=== PATIENT | male | born 1965 | race Caucasian/White ===

== ENCOUNTER 2020-05-30 11:22 | Inpatient (IN) ==
[2020-05-30 11:34] VITALS: BMI 30.3
--- NOTE | 2020-05-30 11:58 | DR.SOBA ---
HPI Time Seen Time Seen by Provider: 05/30/20 11:51 Primary Care Physician Primary Care Physician: BERNIE HPI Comment HPI Comment: PATIENT IS 54 YR OLD MALE, COVID 19 TEST POSITIVE OVER 0NE WEEK AGO PRESENTS TO ER WITH OXYGEN DESATURATION AND INCREASING SON TIMES 3 DAYS. ALSO HAVING HEADACHE. PATIENT IS WEAK AND LOW OXYGEN WORSE WITH EXERTION. CHEST IS TIGHT. HEADACHE 7/10, NON RADIATING. COUGH IS NON PRODUCTIVE. Complaints Chief Complaint Doctors Comments: INCREASING SOB, LOW OXYGEN SATURATION AND HEAD ACHE TIMES 3 DAYS. Chief Complaint:: PT C/O INCREASING SHORTNESS OF BREATH AND LOW OXYGEN SAT AND HEADACHE. PT STATES PT IS + COVID SUNDAY WAS A WEEK AGO. PT STATES HIS OXYGEN LEVEL HAS BEEN LOW 83% ON ROOM AIR. UPON TRIAGE PT IS NOTED TO HAVE LABORED BREATHING AND SPO2 READING AT 87% ON R/A. COVID-19 Coronavirus risk:travel/contact w/high risk person: Yes Has patient experienced Coronavirus symptoms: Yes Coronavirus symptoms experienced: Coughing and Shortness of Breath Reviewed Nurses Notes Reviewed: Yes Source History Provided: Patient Mode of Arrival Mode of Arrival: Ambulatory Timing Onset of Chief Complaint: 05/27/20 Duration Duration: Days Context Onset:: At Rest PE Risk Factors:: None History of:: None Currently on:: Neither Prehospital Care:: None Modifying Factors Worsens:: Nothing and Exertion Improves:: Rest Associated Signs and Symptoms Associated Signs and Symptoms: Cough, Nasal Congestion and Chest Pain If Chest Pain Quality: Sharp Location: Substernal If Cough Cough: Nonproductive PMH PMH Past Medical History: No Past Surgical History: No Family History History of Family Medical Conditions: No Social History Does any household member use tobacco: No Alcohol Use: None Do you use any recreational Drugs:: No Lives With: Family Lives Where: Home Travel Risk Coronavirus risk:travel/contact w/high risk person: Yes Has patient experienced Coronavirus symptoms: Yes Coronavirus symptoms experienced: Coughing and Shortness of Breath Infectious screening In the last 2 months have you had wt loss of >10#?: NO Have you had fever, night sweats or hemotysis?: No Have you traveled outside the country in the last 6 months?: No Isolation: Droplet ROS Review of Systems Constitutional: See HPI, Fever, Weakness and Fatigue Eyes: No Symptoms Reported and See HPI ENTM: No Symptoms Reported, See HPI, Nose Discharge and Nose Congestion Respiratoy: No Symptoms Reported, See HPI, Non-Productive Cough and Short of Breath Cardiovascular: No Symptoms Reported, See HPI and Chest Pain; negative Palpi tations Gastrointestinal/Abdominal: No Symptoms Reported and See HPI; negative Abdominal Pain, Diarrhea, Nausea and Vomiting Genitourinary: No Symptoms Reported and See HPI; negative Dysuria, Frequency and Hematuria Neurological: See HPI, Headache and Weakness Musculoskeletal: No Symptoms Reported and See HPI; negative Back Pain Integumentary: No Symptoms Reported and See HPI; negative Change in Color, Rash and Juandice Hematologic/Lymphatic: No Symptoms Reported and See HPI Endocrine: No Symptoms Reported and See HPI; negative Increased Thirst and Increased Urine Psychiatric: No Symptoms Reported and See HPI All Other Systems: Reviewed and Negative PE Vital Signs Vitals: Temperature 97.8 F Pulse Rate 74 Respiratory Rate 26 Blood Pressure 121/77 O2 Sat by Pulse Oximetry 92 General Limitations: No Limitations General Appearance: Alert and In No Apparent Distress Head Head Exam: Normal Inspection and Atraumatic Eyes Eye exam: Normal Appearance and PERRL; negative Scleral Icterus and Conjunctival Injection ENT ENT Exam: Normal Exam, Normal Oropharynx, Normal External Ear Exam and TM's Normal Bilaterally Neck Neck Exam: Normal Inspection and Trachea Midline; negative Tenderness and Lymphadenopathy Chest Chest Inspection: Normal Inspection and Symmetric Chest Wall Rise; negative Tenderness Respiratory Respiratory Exam: Normal Lung Sounds Bilat; negative Accessory Muscle Use, Chest Wall Tenderness and Respiratory Distress Respiratory Exam: Bilateral: Rhonchi and Lower: Rhonchi Cardiovascular Cardiovascular Exam: Regular Rate, Normal Rhythm and Normal Heart Sounds; negative Systolic Murmur and Diastolic Murmur Abdominal Exam Abdominal Exam: Normal Inspection, Normal Bowel Sounds and Soft; negative Tenderness Extremities Extremities Exam: Normal Inspection Back Back Exam: Normal Inspection; negative (R) CVA Tenderness and (L) CVA Tenderness Neurologic Neurological Exam: Alert, Oriented X3 and CN II-XII Intact; negative Motor Sensory Deficit Psychiatric Psychiatric Exam: Normal Affect and Normal Mood Skin Skin Exam: Warm, Dry, Intact and Normal Color MDM Differential Diagnosis Differential Diagnosis: Bronchitis, CHF, Hyponatremia, Mycardial Infarction, Pneumonia, Pneumothorax, Pulmonary embolism, Respiratory Insufficiency, Sinusitis and URI COURSE Treatment Treatment: SEE ORDERS. Education/Counseling Education/Counseling: Patient Educated On: Diagnosis ROR Labs Reviewed Laboratory Results Reviewed?: Yes Result Diagrams: 06/06/20 05:20 06/06/20 05:20 Laboratory: 05/30/20 12:08 Blood Blood Culture - Final 05/30/20 12:06 Blood Blood Culture - Final WBC 15.8 X10^3/uL (3.6-10.0) H 05/30/20 12:06 RBC 5.07 X10^6/uL (4.7-6.0) 05/30/20 12:06 Hgb 15.0 g/dL (13.5-18.0) 05/30/20 12:06 Hct 43.4 % (42.0-54.0) 05/30/20 12:06 MCV 85.5 fL (80.0-100.0) 05/30/20 12:06 MCH 29.5 pg (27.0-34.0) 05/30/20 12:06 MCHC 34.5 g/dL (33.0-35.0) 05/30/20 12:06 RDW 12.7 % (11.6-16.5) 05/30/20 12:06 Plt Count 274 X10^3/uL (150.0-450.0) 05/30/20 12:06 MPV 7.0 fL (7.4-11.0) L 05/30/20 12:06 Neut % (Auto) 82.3 % (42.0-75.0) H 05/30/20 12:06 Lymph % (Auto) 10.6 % (21.0-51.0) L 05/30/20 12:06 [place] % (Auto) 6.5 % (0.0-13.0) 05/30/20 12:06 Eos % (Auto) 0.2 % (0.9-2.9) L 05/30/20 12:06 Baso % (Auto) 0.4 % (0.2-1.0) 05/30/20 12:06 Neut # (Auto) 13.0 x10^3/uL (2.2-4.8) H 05/30/20 12:06 Lymph # (Auto) 1.7 X10^3/uL (1.3-2.9) 05/30/20 12:06 [place] # (Auto) 1.0 x10^3/uL (0.3-0.8) H 05/30/20 12:06 Eos # (Auto) 0.0 x10^3/uL (0.0-0.2) 05/30/20 12:06 Baso # (Auto) 0.1 X10^3/uL (0.0-0.1) 05/30/20 12:06 Absolute Nucleated RBC 0.1 /100WBC 05/30/20 12:06 Sample Site Rr 05/30/20 12:25 ABG pH 7.480 (7.35-7.45) H 05/30/20 12:25 ABG pCO2 27.0 mmHg (35.0-45.0) L 05/30/20 12:25 ABG pO2 68.0 mmHg (80.0-100.0) L 05/30/20 12:25 ABG HCO3 20.1 mmol/L (22-26) L 05/30/20 12:25 ABG O2 Saturation 95.0 % (90-100) 05/30/20 12:25 ABG Base Excess -2.2 mmol/L (-2.0-2.0) L 05/30/20 12:25 Glenn Test Pos 05/30/20 12:25 A-a Gradient 48.0 mmHg 05/30/20 12:25 FiO2 21.0 05/30/20 12:25 Blood Gas Comments Sonia well 05/30/20 12:25 Sodium 134 mmol/L (136-145) L 05/30/20 12:06 Corrected Sodium 136 mmol/L (136-145) 05/30/20 12:06 Potassium 3.7 mmol/L (3.5-5.1) 05/30/20 12:06 Chloride 100 mmol/L (98-107) 05/30/20 12:06 Carbon Dioxide 23.0 mmol/L (21-32) 05/30/20 12:06 BUN 18 mg/dL (7-18) 05/30/20 12:06 Creatinine 1.12 mg/dL (0.70-1.30) 05/30/20 12:06 Est GFR (MDRD) Af Amer > 60 (>60) 05/30/20 12:06 Est GFR (MDRD) Non-Af > 60 (>60) 05/30/20 12:06 Glucose 187 mg/dL (65-99) H 05/30/20 12:06 Lactic Acid 1.3 mmol/L (0.4-2.0) 05/30/20 12:06 Calcium 8.5 mg/dL (8.5-10.1) 05/30/20 12:06 Corrected Calcium 9.5 mg/dL (8.5-10.1) 05/30/20 12:06 Ferritin 1499 ng/mL (26-388) H 05/30/20 12:06 Total Bilirubin 0.80 mg/dL (0.2-1.0) 05/30/20 12:06 AST 33 Units/L (15-37) 05/30/20 12:06 ALT 63 Units/L (12-78) 05/30/20 12:06 Alkaline Phosphatase 58 Units/L (46-116) 05/30/20 12:06 Lactate Dehydrogenase 533 Units/L (85-227) H 05/30/20 12:06 C-Reactive Protein 173.60 mg/L (0-3.0) H 05/30/20 12:06 Total Protein 7.1 g/dL (6.4-8.2) 05/30/20 12:06 Albumin 2.7 g/dL (3.4-5.0) L 05/30/20 12:06 Globulin 4.4 g/dL (2.5-4.5) 05/30/20 12:06 Albumin/Globulin Ratio 0.6 Ratio (1.1-2.1) L 05/30/20 12:06 XRAY XRAY Interpreted by: Radiologist (REPORT NOTED AND DISCUSSED WITH PATIENT.) and Self EKG Rate: 77 [place]: Normal Rhythm: NSR Block: None Hypertrophy: LAE ST: Normal Opioid Opioid Risk Tool Age ([place] box if 16-45): No History of Preadolescent Sexual Abuse: No Total: 0 Total Score Risk Category: Low Risk Copyright: [facility] predicting aberrant behaviors Diagnosis Discharge Problem: MCCORMICK (dyspnea on exertion) Pneumonia Qualifiers: Pneumonia type: due to unspecified organism Laterality: bilateral Lung location: lower lobe of lung Qualified Code(s): J18.9 - Pneumonia, unspecified organism Instructions Forms: Precautions for COVID19 Patient Portal Social Distancing
[2020-05-30 12:22] LABS: BASOPHILS # (AUTO) 0.1 X10^3/uL (0.0-0.1); BASOPHILS % (AUTO) 0.4 % (0.2-1.0); EOSINOPHILS % (AUTO) 0.2 % (0.9-2.9); HEMATOCRIT 43.4 % (42.0-54.0); LYMPHOCYTES # (AUTO) 1.7 X10^3/uL (1.3-2.9); LYMPHOCYTES % (AUTO) 10.6 % (21.0-51.0); MEAN CORPUSCULAR HEMOGLOBIN 29.5 pg (27.0-34.0); MEAN CORPUSCULAR HGB CONC 34.5 g/dL (33.0-35.0); MEAN CORPUSCULAR VOLUME 85.5 fL (80.0-100.0); MONOCYTES % (AUTO) 6.5 % (0.0-13.0); NEUTROPHILS % (AUTO) 82.3 % (42.0-75.0); PLATELET COUNT 274 X10^3/uL (150.0-450.0); RED BLOOD COUNT 5.07 X10^6/uL (4.7-6.0); RED CELL DISTRIBUTION WIDTH 12.7 % (11.6-16.5); WHITE BLOOD COUNT 15.8 X10^3/uL (3.6-10.0)
[2020-05-30 12:30] LABS: ABG ALLEN TEST POS; ABG BASE EXCESS -2.2 mmol/L (-2.0-2.0); ABG HCO3 20.1 mmol/L (22-26)
[2020-05-30 12:32] LABS: ALANINE AMINOTRANSFERASE 63 Units/L (12-78); ALBUMIN 2.7 g/dL (3.4-5.0); ALKALINE PHOSPHATASE 58 Units/L (46-116); ASPARTATE AMINO TRANSFERASE 33 Units/L (15-37); BLOOD UREA NITROGEN 18 mg/dL (7-18); CALCIUM 8.5 mg/dL (8.5-10.1); CHLORIDE 100 mmol/L (98-107); COR CA(FOR HYPOALB) 9.5 mg/dL (8.5-10.1); COR NA(FOR HYPERGLY) 136 mmol/L (136-145); CREATININE 1.12 mg/dL (0.70-1.30); LACTATE DEHYDROGENASE 533 Units/L (85-227); SODIUM 134 mmol/L (136-145); TOTAL PROTEIN 7.1 g/dL (6.4-8.2); eGFR NON BLACK RACES > 60 (>60)
--- NOTE | 2020-05-30 12:33 | RAD ---
HISTORY:Increasing shortness of breath, low oxygen saturation, COVID-19 positiveStudy:Single-view chestComparison:NoneFindings:Bilateral multifocal lung infiltrates are present compatible with pneumonia and given history of COVID-19. No effusion or pneumothorax. Heart size is normal.IMPRESSION:1. Bilateral multifocal lung infiltrates compatible with pneumonia and the provided history of COVID-19.Electronically signed by: LUZ MARIA BOGGS (May 30, 2020 12:32:01)
[2020-05-30 12:52] LABS: LACTIC ACID 1.3 mmol/L (0.4-2.0)
[2020-05-30] MEDS ORDERED: ZOSYN VIAL 3.375 GRAMS 3.375 G in NS 100 ML IV + SPIKE MINIBAG* 100 ML IV ONE (14:02)
[2020-05-30] MEDS ORDERED: NS 100 ML IV + SPIKE MINIBAG* 100 ML IV ONE ×2 (14:50→19:40)
[2020-05-30] MEDS ORDERED: ZOSYN VIAL 3.375 GRAMS IV ONE ×2 (14:50→19:38)
[2020-05-30] MEDS: DUONEB 0.5 MG/3 MG (3 mL) NEB SCH (17:55)
[2020-05-30] MEDS ORDERED: NS 1/2 1000 ML IV 1,000 ML IV ONE (18:33)
[2020-05-30 18:35] LABS: BILIRUBIN,URINE NEGATIVE (NEGATIVE); BLOOD/HEMOGLOBIN,URINE NEGATIVE (NEGATIVE); GLUCOSE, URINE 2+ (NEGATIVE); KETONES,URINE NEGATIVE (NEGATIVE); LEUKOCYTE ESTERASE ,URINE NEGATIVE (NEGATIVE); NITRITES,URINE NEGATIVE (NEGATIVE); PROTEIN,URINE 2+ (NEGATIVE); UROBILINOGEN,URINE NORMAL (NORMAL)
[2020-05-30] MEDS: NS 1/2 1000 ML IV 1,000 ML IV SCH ×2 (18:35→18:36)
[2020-05-30] MEDS: ROBITUSSIN DM PO SCH ×2 (18:37→21:30)
[2020-05-30 18:48] LABS: APPEARANCE,URINE CLEAR (CLEAR); COLOR,URINE AMBER (YELLOW)
[2020-05-30 18:49] LABS: BACTERIA,URINE TRACE /HPF (NEGATIVE); RBC,URINE NONE SEEN /HPF (0-3); SQUAMOUS EPITHELIAL CELL,UR RARE /HPF (NEGATIVE)
[2020-05-30 18:50] LABS: AMORPHOUS SEDIMENT,UR 1+ /HPF (NEGATIVE); MUCUS,URINE NUMEROUS /HPF (NEGATIVE)
[2020-05-30] MEDS: LEVAQUIN PREMIX IV 750 MG 750 MG/150 ML BAG IV SCH (18:53)
[2020-05-30] MEDS ORDERED: SOLU-Medrol 125 MG VIAL ONE (19:38)
[2020-05-30] MEDS: SOLU-Medrol 125 MG VIAL IVP SCH (21:30)
[2020-05-30] MEDS: ZOSYN VIAL 3.375 GRAMS 3.375 G in NS 100 ML IV + SPIKE MINIBAG* 100 ML IV SCH (22:02)
[2020-05-31] MEDS: DUONEB 0.5 MG/3 MG (3 mL) NEB SCH ×4 (00:10→17:10)
[2020-05-31 05:18] LABS: BASOPHILS % (AUTO) 0.1 % (0.2-1.0); HEMOGLOBIN 13.8 g/dL (13.5-18.0); LYMPHOCYTES # (AUTO) 0.7 X10^3/uL (1.3-2.9); LYMPHOCYTES % (AUTO) 5.5 % (21.0-51.0); MEAN CORPUSCULAR HEMOGLOBIN 29.5 pg (27.0-34.0); MEAN CORPUSCULAR HGB CONC 33.7 g/dL (33.0-35.0); MEAN CORPUSCULAR VOLUME 87.4 fL (80.0-100.0); MEAN PLATELET VOLUME 7.5 fL (7.4-11.0); MONOCYTES # (AUTO) 0.3 x10^3/uL (0.3-0.8); MONOCYTES % (AUTO) 2.4 % (0.0-13.0); NEUTROPHILS # (AUTO) 11.3 x10^3/uL (2.2-4.8); PLATELET COUNT 266 X10^3/uL (150.0-450.0); RED BLOOD COUNT 4.69 X10^6/uL (4.7-6.0); RED CELL DISTRIBUTION WIDTH 12.5 % (11.6-16.5); WHITE BLOOD COUNT 12.3 X10^3/uL (3.6-10.0)
[2020-05-31] MEDS: ZOSYN VIAL 3.375 GRAMS 3.375 G in NS 100 ML IV + SPIKE MINIBAG* 100 ML IV SCH ×3 (05:25→21:05)
[2020-05-31 05:31] LABS: ALANINE AMINOTRANSFERASE 71 Units/L (12-78); ALBUMIN 2.3 g/dL (3.4-5.0); ALKALINE PHOSPHATASE 58 Units/L (46-116); ASPARTATE AMINO TRANSFERASE 43 Units/L (15-37); BLOOD UREA NITROGEN 16 mg/dL (7-18); CARBON DIOXIDE 20.3 mmol/L (21-32); CHLORIDE 100 mmol/L (98-107); COR CA(FOR HYPOALB) 9.4 mg/dL (8.5-10.1); COR NA(FOR HYPERGLY) 137 mmol/L (136-145); CREATININE 0.93 mg/dL (0.70-1.30); SODIUM 132 mmol/L (136-145); TOTAL PROTEIN 6.6 g/dL (6.4-8.2); eGFR NON BLACK RACES > 60 (>60)
[2020-05-31 05:49] LABS: PLATELET MORPHOLOGY COMMENT NORMAL (NORMAL)
[2020-05-31] MEDS: VSL#3 PO SCH (09:45)
[2020-05-31] MEDS: ROBITUSSIN DM PO SCH ×4 (09:45→21:05)
[2020-05-31] MEDS: LEVAQUIN PREMIX IV 750 MG 750 MG/150 ML BAG IV SCH (09:45)
[2020-05-31] MEDS: SOLU-Medrol 125 MG VIAL IVP SCH (09:45)
[2020-05-31] MEDS ORDERED: NS 1/2 1000 ML IV 1,000 ML IV ONE (09:46)
[2020-05-31] MEDS ORDERED: REMDESIVIR (INVESTIGATIONAL DRUG GS-5734) 200 MG in NS 250 ML IV 250 ML IV SCH (14:58)
[2020-05-31] MEDS: LOVENOX INJ 40 MG SYR SC SCH (15:00)
--- NOTE | 2020-05-31 19:08 | DR.H&P ---
H&P - History & Physical for Day of: H&P Date: 05/30/20 - Chief Complaint Chief Complaint: CCC, SOB, COVID 19 - History of Present Illness History of Present Illness: PT C/O INCREASING SHORTNESS OF BREATH AND LOW OXYGEN SAT AND HEADACHE. PT STATES PT IS + COVID CORI WAS A WEEK AGO. PT STATES HIS OXYGEN LEVEL HAS BEEN LOW 83% ON ROOM AIR. UPON TRIAGE PT IS NOTED TO HAVE LABORED BREATHING AND SPO2 READING AT 87% ON R/A. - Past Medical History Past Medical History: Hypertension - Past Surgical History Surgical History: Unknown - Family History Family Medical History: Cancer, [place] - Social History Does patient currently use any type of tobacco product: No Have you used tobacco products in the last 12 months: No Type of Tobacco Use: None Does any household member use tobacco: No Alcohol Use: None Drug Use: None - Medications Home Medications: No Known Drug Allergies Allergy (Verified 05/30/20 11:30) CONTINUE taking the following medications azithromycin 500 mg PO DAILY 05/31/20 [History] dexamethasone 4 mg PO BID 05/31/20 [History] - Review of Systems Constitutional: Weakness Eyes: No Symptoms Reported ENT: No Symptoms Reported Respiratory: Cough Cardiovascular: No Symptoms Reported Gastrointestinal: Nausea, Diarrhea Musculoskeletal: Back Pain Skin: No Symptoms Reported Neurological: No Symptoms Reported - Physical Exam Vital Signs: Temperature 97.8 F Pulse Rate [Right Brachial] 78 Pulse Rate 85 Respiratory Rate 16 Blood Pressure [Right Arm] 121/73 Blood Pressure 127/82 O2 Sat by Pulse Oximetry 92 Oriented: Normal Eyes: Normal Ear: Normal Nose: Normal Respiratory: Rhonchi Throughout, RLL Diminished, LLL Diminished Cardiovascular: Normal. negative: Edema : Normal Auscultation: Bowel Sounds: Normal Palpation: Normal Tenderness: Normal Skin: Decreased [place] Musculoskeletal: Normal Psychiatric: Anxiety Affect: Anxious Speech Pattern: Appropriate - Assessment/Plan (1) Pneumonia due to COVID-19 virus Status: Acute Plan: ADMIT, SUPPLEMENTAL O2. ISOLATION, CARDIAC MONITORING. IV ZITHROMAX AND ZOSYN, PLASMA AND REMDESIVIR. IV HYDRATION. REPEAT AM CXR AND ABG (2) Hypoxia Status: Acute - Allergies Allergies/Adverse Reactions: Allergies Allergy/AdvReac Type Severity Reaction Status Date / Time No Known Drug Allergies Allergy Verified 05/30/20 11:30
--- NOTE | 2020-05-31 19:13 | PCM.PROG ---
Progress Note - Progress Note for Day of Date of Exam: 05/31/20 - Subjective Subjective: PT IS 54 WM ER ADMISSION WITH COVID 19 PNEUMONIA AND HYPOXIA. PT WAS STARTED ON IV ZITHROMAX, ZOSYN AND REMDESIVIR ON ADMISSION. PT REPORTS HE DID NOT SLEEP LAST NIGHT DUE TO IV STEROIDS, DECREASED TO 40IV THIS AM. CONVALESCENT PLASMA ORDERED. NURSING STAFF TO OBTAIN PTS POSITIVE RESULTS TO SCAN TO CHART. PT CO MATTHEW AND DIARRHEA. SOB UP TO RESTROOM. WBC 12.3, RENAL FUNCTION NORMAL. ELEVATED GLUCOSE WITHOUT HX OF DM, A1C ORDERED, BS MONITORING - Past Medical Family Social History Past Med/Fam/Surg Hx: No changes since H&P Allergies: Allergies No Known Drug Allergies Allergy (Verified 05/30/20 11:30) - Review of Systems ROS: No change since H&P - Vital Signs and I&O's Vital Signs: Temperature 97.8 F Pulse Rate [Right Brachial] 78 Pulse Rate 85 Respiratory Rate 16 Blood Pressure [Right Arm] 121/73 Blood Pressure 127/82 O2 Sat by Pulse Oximetry 92 Intake and Output: Intake & Output 05/29/20 05/30/20 05/31/20 06/01/20 11:59 11:59 11:59 11:59 Intake Total 2972 / 2972 Output Total 300 / 300 Balance 2672 / 2672 - Physical Exam Oriented: Normal Eyes: Normal Ear: Normal Nose: Normal Respiratory: Diminished, Rhonchi Cardiovascular: Normal. negative: Edema : Normal Auscultation: Bowel Sounds: Normal Tenderness: Normal Skin: Decreased [place] Musculoskeletal: Normal Psychiatric: Anxiety Affect: Anxious Speech Pattern: Appropriate - Laboratory and Diagnostics Result Diagrams: 05/31/20 04:58 05/31/20 04:58 Labs: 05/30/20 21:40 Sputum - Expectorated Sputum - Final Laboratory WBC 12.3 X10^3/uL (3.6-10.0) H 05/31/20 04:58 RBC 4.69 X10^6/uL (4.7-6.0) L 05/31/20 04:58 Hgb 13.8 g/dL (13.5-18.0) 05/31/20 04:58 Hct 41.0 % (42.0-54.0) L 05/31/20 04:58 MCV 87.4 fL (80.0-100.0) 05/31/20 04:58 MCH 29.5 pg (27.0-34.0) 05/31/20 04:58 MCHC 33.7 g/dL (33.0-35.0) 05/31/20 04:58 RDW 12.5 % (11.6-16.5) 05/31/20 04:58 Plt Count 266 X10^3/uL (150.0-450.0) 05/31/20 04:58 Plt Count Comment Adequate (ADEQUATE) 05/31/20 04:58 MPV 7.5 fL (7.4-11.0) 05/31/20 04:58 Neut % (Auto) 92.0 % (42.0-75.0) H 05/31/20 04:58 Lymph % (Auto) 5.5 % (21.0-51.0) L 05/31/20 04:58 [place] % (Auto) 2.4 % (0.0-13.0) 05/31/20 04:58 Eos % (Auto) 0.0 % (0.9-2.9) L 05/31/20 04:58 Baso % (Auto) 0.1 % (0.2-1.0) L 05/31/20 04:58 Neut # (Auto) 11.3 x10^3/uL (2.2-4.8) H 05/31/20 04:58 Lymph # (Auto) 0.7 X10^3/uL (1.3-2.9) L 05/31/20 04:58 [place] # (Auto) 0.3 x10^3/uL (0.3-0.8) 05/31/20 04:58 Eos # (Auto) 0.0 x10^3/uL (0.0-0.2) 05/31/20 04:58 Baso # (Auto) 0.0 X10^3/uL (0.0-0.1) 05/31/20 04:58 Absolute Nucleated RBC 0.0 /100WBC 05/31/20 04:58 Total Counted 100 05/31/20 04:58 Neutrophils % (Manual) 92 % (39-76) H 05/31/20 04:58 Lymphocytes % (Manual) 6 % (13-43) L 05/31/20 04:58 Monocytes % (Manual) 2 % (4-9) L 05/31/20 04:58 Plt Morphology Comment Normal (NORMAL) 05/31/20 04:58 RBC Morphology Normal (NORMAL) 05/31/20 04:58 Sample Site Rr 05/30/20 12:25 ABG pH 7.480 (7.35-7.45) H 05/30/20 12:25 ABG pCO2 27.0 mmHg (35.0-45.0) L 05/30/20 12:25 ABG pO2 68.0 mmHg (80.0-100.0) L 05/30/20 12:25 ABG HCO3 20.1 mmol/L (22-26) L 05/30/20 12:25 ABG O2 Saturation 95.0 % (90-100) 05/30/20 12:25 ABG Base Excess -2.2 mmol/L (-2.0-2.0) L 05/30/20 12:25 Glenn Test Pos 05/30/20 12:25 A-a Gradient 48.0 mmHg 05/30/20 12:25 FiO2 21.0 05/30/20 12:25 Blood Gas Comments Sonia well 05/30/20 12:25 Sodium 132 mmol/L (136-145) L 05/31/20 04:58 Corrected Sodium 137 mmol/L (136-145) 05/31/20 04:58 Potassium 4.3 mmol/L (3.5-5.1) 05/31/20 04:58 Chloride 100 mmol/L (98-107) 05/31/20 04:58 Carbon Dioxide 20.3 mmol/L (21-32) L 05/31/20 04:58 BUN 16 mg/dL (7-18) 05/31/20 04:58 Creatinine 0.93 mg/dL (0.70-1.30) 05/31/20 04:58 Est GFR (MDRD) Af Amer > 60 (>60) 05/31/20 04:58 Est GFR (MDRD) Non-Af > 60 (>60) 05/31/20 04:58 Glucose 308 mg/dL (65-99) H 05/31/20 04:58 Lactic Acid 1.3 mmol/L (0.4-2.0) 05/30/20 12:06 Calcium 8.0 mg/dL (8.5-10.1) L 05/31/20 04:58 Corrected Calcium 9.4 mg/dL (8.5-10.1) 05/31/20 04:58 Ferritin 1499 ng/mL (26-388) H 05/30/20 12:06 Total Bilirubin 0.60 mg/dL (0.2-1.0) 05/31/20 04:58 AST 43 Units/L (15-37) H 05/31/20 04:58 ALT 71 Units/L (12-78) 05/31/20 04:58 Alkaline Phosphatase 58 Units/L (46-116) 05/31/20 04:58 Lactate Dehydrogenase 533 Units/L (85-227) H 05/30/20 12:06 C-Reactive Protein 173.60 mg/L (0-3.0) H 05/30/20 12:06 Total Protein 6.6 g/dL (6.4-8.2) 05/31/20 04:58 Albumin 2.3 g/dL (3.4-5.0) L 05/31/20 04:58 Globulin 4.3 g/dL (2.5-4.5) 05/31/20 04:58 Albumin/Globulin Ratio 0.5 Ratio (1.1-2.1) L 05/31/20 04:58 Specimen Type Clean catch urine 05/30/20 17:55 Urine Color [place] (YELLOW) 05/30/20 17:55 Urine Appearance Clear (CLEAR) 05/30/20 17:55 Urine pH 5.0 (5.0 - 8.0) 05/30/20 17:55 Ur Specific [place] 1.025 (1.000-1.030) 05/30/20 17:55 Urine Protein 2+ (NEGATIVE) 05/30/20 17:55 Urine Glucose (UA) 2+ (NEGATIVE) 05/30/20 17:55 Urine Ketones Negative (NEGATIVE) 05/30/20 17:55 Urine Occult Blood Negative (NEGATIVE) 05/30/20 17:55 Urine Nitrite Negative (NEGATIVE) 05/30/20 17:55 Urine Bilirubin Negative (NEGATIVE) 05/30/20 17:55 Urine Urobilinogen Normal (NORMAL) 05/30/20 17:55 Ur Leukocyte Esterase Negative (NEGATIVE) 05/30/20 17:55 Urine RBC None seen /HPF (0-3) 05/30/20 17:55 Urine WBC None seen /HPF (0-5) 05/30/20 17:55 Ur Squamous Epith Cells Rare /HPF (NEGATIVE) 05/30/20 17:55 Amorphous Sediment 1+ /HPF (NEGATIVE) 05/30/20 17:55 Urine Bacteria Trace /HPF (NEGATIVE) 05/30/20 17:55 Urine Mucus Numerous /HPF (NEGATIVE) 05/30/20 17:55 Ur Culture Indicated? No/not indicated 05/30/20 17:55 Blood Type O POSITIVE 05/31/20 15:24 - Plan (1) Pneumonia due to COVID-19 virus Status: Acute Plan: AM LABS, REPEAT AM CXR AND ABG ON ROOM AIR, SUPPLEMENTAL O2. ISOLATION, CARDIAC MONITORING. IV ZITHROMAX AND ZOSYN, PLASMA AND REMDESIVIR. IV HYDRATION (2) Hypoxia Status: Acute
[2020-05-31] MEDS ORDERED: ZOSYN VIAL 3.375 GRAMS IV ONE (19:55)
[2020-05-31] MEDS ORDERED: NS 100 ML IV 100 ML IV ONE (19:55)
[2020-05-31] MEDS ORDERED: SOLU-Medrol 40 MG VIAL ONE (19:55)
[2020-05-31] MEDS: SOLU-Medrol 40 MG VIAL IVP SCH (21:06)
[2020-05-31] MEDS: NS 1/2 1000 ML IV 1,000 ML IV SCH ×2 (21:48→21:49)
[2020-06-01] MEDS: TUSSIONEX PENNKINETIC SUSP PO PRN
[2020-06-01] MEDS: DUONEB 0.5 MG/3 MG (3 mL) NEB SCH ×4 (00:40→18:30)
[2020-06-01] MEDS ORDERED: NS 1/2 1000 ML IV 1,000 ML IV ONE ×2 (05:05→19:22)
[2020-06-01] MEDS: ZOSYN VIAL 3.375 GRAMS 3.375 G in NS 100 ML IV + SPIKE MINIBAG* 100 ML IV SCH ×3 (05:32→21:11)
[2020-06-01] MEDS: NS 1/2 1000 ML IV 1,000 ML IV SCH ×3 (05:33→21:12)
[2020-06-01 06:09] LABS: ALANINE AMINOTRANSFERASE 126 Units/L (12-78); ALBUMIN 2.2 g/dL (3.4-5.0); ALKALINE PHOSPHATASE 60 Units/L (46-116); ASPARTATE AMINO TRANSFERASE 46 Units/L (15-37); BASOPHILS % (AUTO) 0 % (0.2-1.0); BLOOD UREA NITROGEN 25 mg/dL (7-18); CALCIUM 8.5 mg/dL (8.5-10.1); CARBON DIOXIDE 20.5 mmol/L (21-32); CHLORIDE 102 mmol/L (98-107); COR CA(FOR HYPOALB) 9.9 mg/dL (8.5-10.1); COR NA(FOR HYPERGLY) 141 mmol/L (136-145); CREATININE 1.11 mg/dL (0.70-1.30); HEMOGLOBIN 13.2 g/dL (13.5-18.0); LYMPHOCYTES % (AUTO) 5.1 % (21.0-51.0); MEAN CORPUSCULAR HEMOGLOBIN 29.5 pg (27.0-34.0); MEAN CORPUSCULAR HGB CONC 33.9 g/dL (33.0-35.0); MEAN PLATELET VOLUME 7.7 fL (7.4-11.0); MONOCYTES # (AUTO) 0.7 x10^3/uL (0.3-0.8); MONOCYTES % (AUTO) 3.6 % (0.0-13.0); NEUTROPHILS # (AUTO) 18.4 x10^3/uL (2.2-4.8); NEUTROPHILS % (AUTO) 91.3 % (42.0-75.0); PLATELET COUNT 325 X10^3/uL (150.0-450.0); RED BLOOD COUNT 4.48 X10^6/uL (4.7-6.0); RED CELL DISTRIBUTION WIDTH 12.6 % (11.6-16.5); SODIUM 134 mmol/L (136-145); TOTAL PROTEIN 6.2 g/dL (6.4-8.2); WHITE BLOOD COUNT 20.2 X10^3/uL (3.6-10.0); eGFR NON BLACK RACES > 60 (>60)
[2020-06-01 06:14] LABS: ABG BASE EXCESS -1.8 mmol/L (-2.0-2.0); ABG HCO3 21.9 mmol/L (22-26)
[2020-06-01 06:15] LABS: ABG ALLEN TEST POS
[2020-06-01 07:31] LABS: BAND NEUTROPHILS % 5 % (0-10); PLATELET MORPHOLOGY COMMENT NORMAL (NORMAL)
[2020-06-01] MEDS: LEVAQUIN PREMIX IV 750 MG 750 MG/150 ML BAG IV SCH (09:11)
[2020-06-01] MEDS: LOVENOX INJ 40 MG SYR SC SCH (09:11)
[2020-06-01] MEDS: REMDESIVIR (INVESTIGATIONAL DRUG GS-5734) 100 MG in NS 250 ML IV 250 ML IV SCH (09:13)
[2020-06-01] MEDS: ROBITUSSIN DM PO SCH ×4 (09:14→21:11)
[2020-06-01] MEDS: SOLU-Medrol 40 MG VIAL IVP SCH (09:14)
[2020-06-01] MEDS: VSL#3 PO SCH (09:14)
--- NOTE | 2020-06-01 10:12 | RAD ---
HISTORYSOB, COVID +STUDYCHEST x-ray, 1 VIEWCOMPARISONX-ray 06/01/2020FINDINGSBilateral pneumonia is similar to prior study. No pneumothorax or pleural effusion is seen. Heart is normal in size.IMPRESSIONBilateral pneumonia is unchanged.Electronically signed by: Oneil Patterson (Jun 01, 2020 10:11:54)
[2020-06-01] MEDS: HumuLIN R SUBCUT PRN ×4 (12:26→21:12)
[2020-06-01] MEDS: ZITHROMAX INJ 500 MG VIAL 500 MG in NS 250 ML IV 250 ML IV SCH (13:50)
[2020-06-01] MEDS: SNACK - Diabetic Appropriate PO SCH (20:23)
[2020-06-02] MEDS: DUONEB 0.5 MG/3 MG (3 mL) NEB SCH ×4 (00:50→19:30)
[2020-06-02] MEDS: NS 1/2 1000 ML IV 1,000 ML IV SCH ×2 (02:27→19:27)
[2020-06-02] MEDS: HumuLIN R SUBCUT PRN ×2 (05:44→18:09)
[2020-06-02] MEDS: ZOSYN VIAL 3.375 GRAMS 3.375 G in NS 100 ML IV + SPIKE MINIBAG* 100 ML IV SCH ×3 (05:44→21:02)
[2020-06-02 05:54] LABS: ABG BASE EXCESS 0.8 mmol/L (-2.0-2.0); ABG HCO3 24.2 mmol/L (22-26)
[2020-06-02 05:55] LABS: ABG ALLEN TEST POS
[2020-06-02 06:16] LABS: ALANINE AMINOTRANSFERASE 87 Units/L (12-78); ALBUMIN 2.1 g/dL (3.4-5.0); ALKALINE PHOSPHATASE 81 Units/L (46-116); ASPARTATE AMINO TRANSFERASE 23 Units/L (15-37); BLOOD UREA NITROGEN 22 mg/dL (7-18); CALCIUM 8.1 mg/dL (8.5-10.1); CARBON DIOXIDE 24.5 mmol/L (21-32); CHLORIDE 105 mmol/L (98-107); COR CA(FOR HYPOALB) 9.6 mg/dL (8.5-10.1); COR NA(FOR HYPERGLY) 142 mmol/L (136-145); SODIUM 137 mmol/L (136-145); TOTAL PROTEIN 5.6 g/dL (6.4-8.2); eGFR NON BLACK RACES > 60 (>60)
[2020-06-02 06:17] LABS: BASOPHILS % (AUTO) 0.1 % (0.2-1.0); EOSINOPHILS % (AUTO) 0.3 % (0.9-2.9); HEMATOCRIT 36.7 % (42.0-54.0); HEMOGLOBIN 12.4 g/dL (13.5-18.0); LYMPHOCYTES # (AUTO) 1.5 X10^3/uL (1.3-2.9); LYMPHOCYTES % (AUTO) 7.9 % (21.0-51.0); MEAN CORPUSCULAR HEMOGLOBIN 29.4 pg (27.0-34.0); MEAN CORPUSCULAR HGB CONC 33.9 g/dL (33.0-35.0); MEAN CORPUSCULAR VOLUME 86.8 fL (80.0-100.0); MEAN PLATELET VOLUME 7.7 fL (7.4-11.0); MONOCYTES # (AUTO) 0.7 x10^3/uL (0.3-0.8); MONOCYTES % (AUTO) 3.8 % (0.0-13.0); NEUTROPHILS # (AUTO) 16.4 x10^3/uL (2.2-4.8); NEUTROPHILS % (AUTO) 87.9 % (42.0-75.0); PLATELET COUNT 295 X10^3/uL (150.0-450.0); RED BLOOD COUNT 4.23 X10^6/uL (4.7-6.0); WHITE BLOOD COUNT 18.7 X10^3/uL (3.6-10.0)
--- NOTE | 2020-06-02 06:24 | RAD ---
HISTORYPNEUMONIASTUDYCHEST, 1 VIEWCOMPARISONOne day priorTECHNIQUEAP view of the chestFINDINGSCardiac and mediastinal contours are within normal limits. Mild worsening in diffuse bilateral airspace disease. No pleural effusion or pneumothorax.IMPRESSIONWorsened airspace disease.Electronically signed by: Brent Pereyra (Jun 02, 2020 06:22:56)
[2020-06-02] MEDS: TUSSIONEX PENNKINETIC SUSP PO PRN (09:00)
[2020-06-02] MEDS: LOVENOX INJ 40 MG SYR SC SCH (09:38)
[2020-06-02] MEDS: ROBITUSSIN DM PO SCH ×5 (09:39→20:43)
[2020-06-02] MEDS: REMDESIVIR (INVESTIGATIONAL DRUG GS-5734) 100 MG in NS 250 ML IV 250 ML IV SCH (09:39)
[2020-06-02] MEDS: VSL#3 PO SCH (09:40)
[2020-06-02] MEDS: ZITHROMAX INJ 500 MG VIAL 500 MG in NS 250 ML IV 250 ML IV SCH (10:00)
[2020-06-02] MEDS ORDERED: NS 250 ML IV 250 ML IV ONE (16:21)
[2020-06-02] MEDS ORDERED: NS 1/2 1000 ML IV 1,000 ML IV ONE (19:59)
[2020-06-02] MEDS: SNACK - Diabetic Appropriate PO SCH (20:43)
[2020-06-03] MEDS: DUONEB 0.5 MG/3 MG (3 mL) NEB SCH ×4 (00:50→17:10)
[2020-06-03] MEDS: ZOSYN VIAL 3.375 GRAMS 3.375 G in NS 100 ML IV + SPIKE MINIBAG* 100 ML IV SCH ×3 (05:39→21:15)
[2020-06-03 06:06] LABS: BASOPHILS % (AUTO) 0.1 % (0.2-1.0); EOSINOPHILS # (AUTO) 0.1 x10^3/uL (0.0-0.2); EOSINOPHILS % (AUTO) 0.7 % (0.9-2.9); HEMATOCRIT 39.8 % (42.0-54.0); HEMOGLOBIN 13.5 g/dL (13.5-18.0); LYMPHOCYTES # (AUTO) 1.6 X10^3/uL (1.3-2.9); LYMPHOCYTES % (AUTO) 11.5 % (21.0-51.0); MEAN CORPUSCULAR HEMOGLOBIN 29.3 pg (27.0-34.0); MEAN CORPUSCULAR VOLUME 86.1 fL (80.0-100.0); MEAN PLATELET VOLUME 7.8 fL (7.4-11.0); MONOCYTES # (AUTO) 0.6 x10^3/uL (0.3-0.8); MONOCYTES % (AUTO) 4.3 % (0.0-13.0); NEUTROPHILS # (AUTO) 11.6 x10^3/uL (2.2-4.8); NEUTROPHILS % (AUTO) 83.4 % (42.0-75.0); PLATELET COUNT 297 X10^3/uL (150.0-450.0); RED BLOOD COUNT 4.61 X10^6/uL (4.7-6.0); RED CELL DISTRIBUTION WIDTH 12.8 % (11.6-16.5); WHITE BLOOD COUNT 13.9 X10^3/uL (3.6-10.0)
[2020-06-03 06:07] LABS: ALANINE AMINOTRANSFERASE 66 Units/L (12-78); ALBUMIN 2.3 g/dL (3.4-5.0); ALKALINE PHOSPHATASE 51 Units/L (46-116); ASPARTATE AMINO TRANSFERASE 31 Units/L (15-37); BLOOD UREA NITROGEN 14 mg/dL (7-18); CALCIUM 7.8 mg/dL (8.5-10.1); CARBON DIOXIDE 24.5 mmol/L (21-32); CHLORIDE 101 mmol/L (98-107); COR CA(FOR HYPOALB) 9.2 mg/dL (8.5-10.1); COR NA(FOR HYPERGLY) 136 mmol/L (136-145); CREATININE 0.88 mg/dL (0.70-1.30); SODIUM 134 mmol/L (136-145); TOTAL PROTEIN 5.9 g/dL (6.4-8.2); eGFR NON BLACK RACES > 60 (>60)
[2020-06-03 06:39] LABS: ABG ALLEN TEST POS; ABG BASE EXCESS 3.6 mmol/L (-2.0-2.0); ABG HCO3 26.1 mmol/L (22-26)
--- NOTE | 2020-06-03 06:47 | RAD ---
HISTORYFollow-up COVID-19STUDYChest AP [id number]/02/2020FINDINGSThe heart is within normal limits in size but. No congestive heart failure is noted. Diffuse bilateral patchy and confluent alveolar infiltrates are unchanged on the right and somewhat increased on the left when compared with the prior examination. No pleural effusions are identified. Bony thorax is unremarkable.IMPRESSIONNo change perihilar interstitial and alveolar infiltrates on the rightIncreasing left-sided perihilar predominantly upper lobe interstitial and alveolar infiltrates when compared to the prior examinationElectronically signed by: JOSUE SANDERS (Jun 03, 2020 06:46:42)
[2020-06-03] MEDS: LOVENOX INJ 40 MG SYR SC SCH (08:55)
[2020-06-03] MEDS: REMDESIVIR (INVESTIGATIONAL DRUG GS-5734) 100 MG in NS 250 ML IV 250 ML IV SCH (08:56)
[2020-06-03] MEDS: ROBITUSSIN DM PO SCH ×4 (08:56→20:05)
[2020-06-03] MEDS: VSL#3 PO SCH (08:56)
[2020-06-03] MEDS: HumuLIN R SUBCUT PRN ×2 (12:18→20:05)
[2020-06-03] MEDS: ZITHROMAX INJ 500 MG VIAL 500 MG in NS 250 ML IV 250 ML IV SCH (12:23)
[2020-06-03] MEDS ORDERED: NS 1/2 1000 ML IV 1,000 ML IV ONE (15:45)
[2020-06-03] MEDS ORDERED: NS 500 ML IV 0 ML IV ONE (15:53)
[2020-06-03] MEDS ORDERED: NS 500 ML IV 500 ML IV ONE (15:55)
[2020-06-03] MEDS: NS 1/2 1000 ML IV 1,000 ML IV SCH (17:11)
[2020-06-03] MEDS: SNACK - Diabetic Appropriate PO SCH (20:05)
[2020-06-04] MEDS: DUONEB 0.5 MG/3 MG (3 mL) NEB SCH ×4 (01:02→16:15)
[2020-06-04 05:23] LABS: BASOPHILS % (AUTO) 0.2 % (0.2-1.0); EOSINOPHILS # (AUTO) 0.3 x10^3/uL (0.0-0.2); EOSINOPHILS % (AUTO) 2.5 % (0.9-2.9); HEMATOCRIT 38.5 % (42.0-54.0); LYMPHOCYTES # (AUTO) 1.5 X10^3/uL (1.3-2.9); LYMPHOCYTES % (AUTO) 12.7 % (21.0-51.0); MEAN CORPUSCULAR HEMOGLOBIN 29.4 pg (27.0-34.0); MEAN CORPUSCULAR HGB CONC 33.6 g/dL (33.0-35.0); MEAN CORPUSCULAR VOLUME 87.3 fL (80.0-100.0); MEAN PLATELET VOLUME 7.7 fL (7.4-11.0); MONOCYTES # (AUTO) 0.5 x10^3/uL (0.3-0.8); MONOCYTES % (AUTO) 4.3 % (0.0-13.0); NEUTROPHILS # (AUTO) 9.2 x10^3/uL (2.2-4.8); NEUTROPHILS % (AUTO) 80.3 % (42.0-75.0); PLATELET COUNT 259 X10^3/uL (150.0-450.0); RED BLOOD COUNT 4.41 X10^6/uL (4.7-6.0); RED CELL DISTRIBUTION WIDTH 12.8 % (11.6-16.5); WHITE BLOOD COUNT 11.5 X10^3/uL (3.6-10.0)
[2020-06-04 05:31] LABS: ABG ALLEN TEST POS; ABG BASE EXCESS 0.8 mmol/L (-2.0-2.0); ABG HCO3 24.2 mmol/L (22-26); ALANINE AMINOTRANSFERASE 50 Units/L (12-78); ALBUMIN 2.1 g/dL (3.4-5.0); ALKALINE PHOSPHATASE 46 Units/L (46-116); ASPARTATE AMINO TRANSFERASE 22 Units/L (15-37); BLOOD UREA NITROGEN 16 mg/dL (7-18); CALCIUM 7.6 mg/dL (8.5-10.1); CARBON DIOXIDE 22.6 mmol/L (21-32); CHLORIDE 103 mmol/L (98-107); COR CA(FOR HYPOALB) 9.1 mg/dL (8.5-10.1); COR NA(FOR HYPERGLY) 138 mmol/L (136-145); CREATININE 0.78 mg/dL (0.70-1.30); SODIUM 136 mmol/L (136-145); TOTAL PROTEIN 5.7 g/dL (6.4-8.2); eGFR NON BLACK RACES > 60 (>60)
[2020-06-04] MEDS: ZOSYN VIAL 3.375 GRAMS 3.375 G in NS 100 ML IV + SPIKE MINIBAG* 100 ML IV SCH ×3 (05:40→21:10)
[2020-06-04] MEDS: HumuLIN R SUBCUT PRN ×4 (06:13→21:10)
--- NOTE | 2020-06-04 06:21 | RAD ---
HISTORYPNEUMONIASTUDYCHEST, 1 [id number]/03/2020TECHNIQUEAP view of the chestFINDINGSCardiac and mediastinal contours appear stable. Stable bilateral airspace disease. No definite pleural effusion or pneumothorax.IMPRESSIONStable pneumonia.Electronically signed by: Brent Pereyra (Jun 04, 2020 06:21:05)
[2020-06-04] MEDS: LOVENOX INJ 40 MG SYR SC SCH (08:16)
[2020-06-04] MEDS: REMDESIVIR (INVESTIGATIONAL DRUG GS-5734) 100 MG in NS 250 ML IV 250 ML IV SCH (08:16)
--- NOTE | 2020-06-04 08:37 | CT ---
HISTORYcovid sob evaluate pulmonary embolus. Short of breath.STUDYCTA CHESTCOMPARISONChest radiograph 06/03/2020TECHNIQUEMultiple axial images of the chest were obtained from the thoracic inlet to the upper abdomen after the administration of IV contrast. 3D reconstructions utilizing axial MIPS imaging was performed and reviewed. Dose reduction techniques including Automated Exposure Control (AEC) and adjustment of mA and kV were utilized.FINDINGSPulmonary arteries are identified to subsegmental branches. No pulmonary emboli are present.Heart size is normal. Pulmonary artery and aorta have normal caliber. No mediastinal mass. Borderline mediastinal lymph nodes are probably reactive.Thyroid has a normal size and shape. No axillary mass or lymphadenopathy.Patchy bilateral combined airspace and ground-glass opacities are present in the lungs. This is a nonspecific finding probably from acute pneumonia. But the findings are typical of those described in the literature for COVID-19 pneumonia. There may be trace bilateral pleural effusions.Limited views upper abdomen show no significant abnormality. No significant bone abnormality except for mild degenerative changes in the spine.IMPRESSION1. No pulmonary emboli2. Bilateral pneumonia, imaging findings typical for COVID-19Electronically signed by: Brent Verdin (Jun 03, 2020 16:51:07)
[2020-06-04] MEDS: ROBITUSSIN DM PO SCH ×4 (09:15→21:10)
[2020-06-04] MEDS: VSL#3 PO SCH (09:16)
[2020-06-04] MEDS: ZITHROMAX INJ 500 MG VIAL 500 MG in NS 250 ML IV 250 ML IV SCH (09:40)
[2020-06-04] MEDS: NS 1/2 1000 ML IV 1,000 ML IV SCH ×2 (11:53→16:50)
[2020-06-04] MEDS ORDERED: NS 1/2 1000 ML IV 1,000 ML IV ONE (16:42)
[2020-06-04] MEDS: SNACK - Diabetic Appropriate PO SCH (21:10)
[2020-06-04] MEDS: BENADRYL CAP 50 MG PO PRN (21:45)
[2020-06-04] MEDS: BACTROBAN TOPICAL OINT TOP SCH (21:45)
[2020-06-05] MEDS: ZOSYN VIAL 3.375 GRAMS 3.375 G in NS 100 ML IV + SPIKE MINIBAG* 100 ML IV SCH ×3 (05:39→21:15)
[2020-06-05] MEDS: BACTROBAN TOPICAL OINT TOP SCH ×3 (05:39→21:15)
[2020-06-05 05:41] LABS: BASOPHILS % (AUTO) 0.4 % (0.2-1.0); EOSINOPHILS # (AUTO) 0.3 x10^3/uL (0.0-0.2); EOSINOPHILS % (AUTO) 2.3 % (0.9-2.9); HEMATOCRIT 39.5 % (42.0-54.0); HEMOGLOBIN 13.2 g/dL (13.5-18.0); LYMPHOCYTES # (AUTO) 1.7 X10^3/uL (1.3-2.9); LYMPHOCYTES % (AUTO) 14.9 % (21.0-51.0); MEAN CORPUSCULAR HEMOGLOBIN 29.4 pg (27.0-34.0); MEAN CORPUSCULAR HGB CONC 33.5 g/dL (33.0-35.0); MEAN CORPUSCULAR VOLUME 87.6 fL (80.0-100.0); MEAN PLATELET VOLUME 7.9 fL (7.4-11.0); MONOCYTES # (AUTO) 0.7 x10^3/uL (0.3-0.8); NEUTROPHILS # (AUTO) 8.6 x10^3/uL (2.2-4.8); NEUTROPHILS % (AUTO) 76.4 % (42.0-75.0); PLATELET COUNT 318 X10^3/uL (150.0-450.0); RED BLOOD COUNT 4.51 X10^6/uL (4.7-6.0); RED CELL DISTRIBUTION WIDTH 12.7 % (11.6-16.5); WHITE BLOOD COUNT 11.2 X10^3/uL (3.6-10.0)
[2020-06-05 05:49] LABS: ALANINE AMINOTRANSFERASE 49 Units/L (12-78); ALBUMIN 2.2 g/dL (3.4-5.0); ALKALINE PHOSPHATASE 49 Units/L (46-116); ASPARTATE AMINO TRANSFERASE 21 Units/L (15-37); BLOOD UREA NITROGEN 13 mg/dL (7-18); CALCIUM 7.9 mg/dL (8.5-10.1); CARBON DIOXIDE 25.6 mmol/L (21-32); CHLORIDE 106 mmol/L (98-107); COR CA(FOR HYPOALB) 9.3 mg/dL (8.5-10.1); COR NA(FOR HYPERGLY) 139 mmol/L (136-145); CREATININE 0.87 mg/dL (0.70-1.30); SODIUM 138 mmol/L (136-145); TOTAL PROTEIN 5.8 g/dL (6.4-8.2); eGFR NON BLACK RACES > 60 (>60)
[2020-06-05 05:56] LABS: ABG ALLEN TEST POS; ABG BASE EXCESS 0.1 mmol/L (-2.0-2.0); ABG HCO3 23.6 mmol/L (22-26)
[2020-06-05] MEDS: DUONEB 0.5 MG/3 MG (3 mL) NEB SCH ×4 (05:57→18:35)
[2020-06-05 06:34] LABS: BAND NEUTROPHILS % 1 % (0-10); PLATELET MORPHOLOGY COMMENT NORMAL (NORMAL)
[2020-06-05] MEDS: LOVENOX INJ 40 MG SYR SC SCH (08:44)
[2020-06-05] MEDS: ROBITUSSIN DM PO SCH ×4 (08:45→21:15)
[2020-06-05] MEDS: VSL#3 PO SCH (08:45)
[2020-06-05] MEDS: ZITHROMAX INJ 500 MG VIAL 500 MG in NS 250 ML IV 250 ML IV SCH (08:45)
--- NOTE | 2020-06-05 10:51 | PCM.PROG ---
Progress Note Progress Note for Day of Date of Exam: 06/05/20 Subjective Subjective: Patient seen at bedside, no overnight events. Patient states he is feeling a lot better today. His breathing has improved. He is currently on 4 L NC. He reports a slight cough. Denies fever or chills. Denies N/V/D. He is currently admitted for COVID-19 infection. He completed course of Remdesivir and steroids. He did receive plasma on 06/02/20. He is currently on Azithromax and Zosyn. Labs: WBC: 11.2 AB.45/34/69/23 CTPE: neg for PE, bibasilar interstitial opacities consistent with COVID-19 infection. CXR: stable with no new findings Plan: continue current treatment, wean O2 as tolerated. Monitor AM labs. Past Medical Family Social History Past Med/Fam/Surg Hx: No changes since H&P Allergies: Allergies No Known Drug Allergies Allergy (Verified 05/30/20 11:30) Review of Systems ROS: No change since H&P Vital Signs and I&O's Vital Signs: Temperature 98.0 F Pulse Rate [Right Brachial] 111 Pulse Rate 83 Respiratory Rate 20 Blood Pressure [Left Arm] 111/76 Blood Pressure [Right Arm] 105/69 Blood Pressure 127/82 O2 Sat by Pulse Oximetry 92 Intake and Output: Intake & Output 06/02/20 06/03/20 06/04/20 06/05/20 23:59 23:59 23:59 23:59 Intake Total 3040 / 3040 3419 / 3419 3925 / 3925 1048 / 1048 Balance 3040 / 3040 3419 / 3419 3925 / 3925 1048 / 1048 Physical Exam Oriented: Normal Eyes: Normal Ear: Normal Nose: Normal Respiratory: Generalized and Diminished Cardiovascular: Normal; negative Edema : Normal Auscultation: Bowel Sounds: Normal Tenderness: Normal Skin: Decreased Turgur Musculoskeletal: Normal Psychiatric: Normal Affect: Normal Speech Pattern: Clear and Appropriate Laboratory and Diagnostics Result Diagrams: 06/05/20 05:10 06/05/20 05:10 Labs: 05/30/20 12:08 Blood Blood Culture - Final 05/30/20 12:06 Blood Blood Culture - Final 05/30/20 21:40 Sputum - Expectorated Sputum Sputum Culture - Final 05/30/20 21:40 Sputum - Expectorated Sputum - Final Laboratory WBC 11.2 X10^3/uL (3.6-10.0) H 06/05/20 05:10 RBC 4.51 X10^6/uL (4.7-6.0) L 06/05/20 05:10 Hgb 13.2 g/dL (13.5-18.0) L 06/05/20 05:10 Hct 39.5 % (42.0-54.0) L 06/05/20 05:10 MCV 87.6 fL (80.0-100.0) 06/05/20 05:10 MCH 29.4 pg (27.0-34.0) 06/05/20 05:10 MCHC 33.5 g/dL (33.0-35.0) 06/05/20 05:10 RDW 12.7 % (11.6-16.5) 06/05/20 05:10 Plt Count 318 X10^3/uL (150.0-450.0) 06/05/20 05:10 Plt Count Comment Adequate (ADEQUATE) 06/05/20 05:10 MPV 7.9 fL (7.4-11.0) 06/05/20 05:10 Neut % (Auto) 76.4 % (42.0-75.0) H 06/05/20 05:10 Lymph % (Auto) 14.9 % (21.0-51.0) L 06/05/20 05:10 [place] % (Auto) 6.0 % (0.0-13.0) 06/05/20 05:10 Eos % (Auto) 2.3 % (0.9-2.9) 06/05/20 05:10 Baso % (Auto) 0.4 % (0.2-1.0) 06/05/20 05:10 Neut # (Auto) 8.6 x10^3/uL (2.2-4.8) H 06/05/20 05:10 Lymph # (Auto) 1.7 X10^3/uL (1.3-2.9) 06/05/20 05:10 [place] # (Auto) 0.7 x10^3/uL (0.3-0.8) 06/05/20 05:10 Eos # (Auto) 0.3 x10^3/uL (0.0-0.2) H 06/05/20 05:10 Baso # (Auto) 0.0 X10^3/uL (0.0-0.1) 06/05/20 05:10 Absolute Nucleated RBC 0.0 /100WBC 06/05/20 05:10 Total Counted 100 06/05/20 05:10 Neutrophils % (Manual) 76 % (39-76) 06/05/20 05:10 Band Neutrophils % 1 % (0-10) 06/05/20 05:10 Lymphocytes % (Manual) 13 % (13-43) 06/05/20 05:10 Monocytes % (Manual) 8 % (4-9) 06/05/20 05:10 Eosinophils % (Manual) 2 % (0-6) 06/05/20 05:10 Basophils % (Manual) Cancelled 06/04/20 05:00 Metamyelocytes % Cancelled 06/04/20 05:00 Myelocytes % Cancelled 06/04/20 05:00 Promyelocytes % Cancelled 06/04/20 05:00 Nucleated RBCs Cancelled 06/04/20 05:00 Atypical Lymphocytes Cancelled 06/04/20 05:00 Blast Cells Cancelled 06/04/20 05:00 Smudge Cells Cancelled 06/04/20 05:00 Toxic Granulation Cancelled 06/04/20 05:00 Dohle Bodies Cancelled 06/04/20 05:00 Ela Rods Cancelled 06/04/20 05:00 Plt Clumps, EDTA Cancelled 06/04/20 05:00 Giant Platelets Cancelled 06/04/20 05:00 Plt Morphology Comment Normal (NORMAL) 06/05/20 05:10 RBC Morphology Normal (NORMAL) 06/05/20 05:10 Dimorphic RBCs Cancelled 06/04/20 05:00 Polychromasia Cancelled 06/04/20 05:00 Hypochromasia Cancelled 06/04/20 05:00 Poikilocytosis Cancelled 06/04/20 05:00 Basophilic Stippling Cancelled 06/04/20 05:00 Anisocytosis Cancelled 06/04/20 05:00 Microcytosis Cancelled 06/04/20 05:00 Macrocytosis Cancelled 06/04/20 05:00 Spherocytes Cancelled 06/04/20 05:00 Pappenheimer Bodies Cancelled 06/04/20 05:00 Sickle Cells Cancelled 06/04/20 05:00 Target Cells Cancelled 06/04/20 05:00 Tear Drop Cells Cancelled 06/04/20 05:00 Ovalocytes Cancelled 06/04/20 05:00 Stomatocytes Cancelled 06/04/20 05:00 Helmet Cells Cancelled 06/04/20 05:00 [place] Bodies Cancelled 06/04/20 05:00 [place] Rings Cancelled 06/04/20 05:00 [place] Cells Cancelled 06/04/20 05:00 Crenated Cell Cancelled 06/04/20 05:00 Acanthocytes (Spur) Cancelled 06/04/20 05:00 Rouleaux Cancelled 06/04/20 05:00 Schistocytes Cancelled 06/04/20 05:00 Sample Site Lr 06/05/20 05:49 ABG pH 7.450 (7.35-7.45) 06/05/20 05:49 ABG pCO2 34.0 mmHg (35.0-45.0) L 06/05/20 05:49 ABG pO2 69.0 mmHg (80.0-100.0) L 06/05/20 05:49 ABG HCO3 23.6 mmol/L (22-26) 06/05/20 05:49 ABG O2 Saturation 94.0 % (90-100) 06/05/20 05:49 ABG Base Excess 0.1 mmol/L (-2.0-2.0) 06/05/20 05:49 Glenn Test Pos 06/05/20 05:49 A-a Gradient 117.0 mmHg 06/05/20 05:49 FiO2 32.0 06/05/20 05:49 Blood Gas Comments Sonia well ae 06/05/20 05:49 Sodium 138 mmol/L (136-145) 06/05/20 05:10 Corrected Sodium 139 mmol/L (136-145) 06/05/20 05:10 Potassium 4.0 mmol/L (3.5-5.1) 06/05/20 05:10 Chloride 106 mmol/L (98-107) 06/05/20 05:10 Carbon Dioxide 25.6 mmol/L (21-32) 06/05/20 05:10 BUN 13 mg/dL (7-18) 06/05/20 05:10 Creatinine 0.87 mg/dL (0.70-1.30) 06/05/20 05:10 Est GFR (MDRD) Af Amer > 60 (>60) 06/05/20 05:10 Est GFR (MDRD) Non-Af > 60 (>60) 06/05/20 05:10 Glucose 137 mg/dL (65-99) H 06/05/20 05:10 Hemoglobin A1c 7.0 % 06/01/20 05:10 Lactic Acid 1.3 mmol/L (0.4-2.0) 05/30/20 12:06 Calcium 7.9 mg/dL (8.5-10.1) L 06/05/20 05:10 Corrected Calcium 9.3 mg/dL (8.5-10.1) 06/05/20 05:10 Ferritin 1499 ng/mL (26-388) H 05/30/20 12:06 Total Bilirubin 0.60 mg/dL (0.2-1.0) 06/05/20 05:10 AST 21 Units/L (15-37) 06/05/20 05:10 ALT 49 Units/L (12-78) 06/05/20 05:10 Alkaline Phosphatase 49 Units/L (46-116) 06/05/20 05:10 Lactate Dehydrogenase 533 Units/L (85-227) H 05/30/20 12:06 C-Reactive Protein 173.60 mg/L (0-3.0) H 05/30/20 12:06 Total Protein 5.8 g/dL (6.4-8.2) L 06/05/20 05:10 Albumin 2.2 g/dL (3.4-5.0) L 06/05/20 05:10 Globulin 3.6 g/dL (2.5-4.5) 06/05/20 05:10 Albumin/Globulin Ratio 0.6 Ratio (1.1-2.1) L 06/05/20 05:10 Specimen Type Clean catch urine 05/30/20 17:55 Urine Color Amanda (YELLOW) 05/30/20 17:55 Urine Appearance Clear (CLEAR) 05/30/20 17:55 Urine pH 5.0 (5.0 - 8.0) 05/30/20 17:55 Ur Specific [place] 1.025 (1.000-1.030) 05/30/20 17:55 Urine Protein 2+ (NEGATIVE) 05/30/20 17:55 Urine Glucose (UA) 2+ (NEGATIVE) 05/30/20 17:55 Urine Ketones Negative (NEGATIVE) 05/30/20 17:55 Urine Occult Blood Negative (NEGATIVE) 05/30/20 17:55 Urine Nitrite Negative (NEGATIVE) 05/30/20 17:55 Urine Bilirubin Negative (NEGATIVE) 05/30/20 17:55 Urine Urobilinogen Normal (NORMAL) 05/30/20 17:55 Ur Leukocyte Esterase Negative (NEGATIVE) 05/30/20 17:55 Urine RBC None seen /HPF (0-3) 05/30/20 17:55 Urine WBC None seen /HPF (0-5) 05/30/20 17:55 Ur Squamous Epith Cells Rare /HPF (NEGATIVE) 05/30/20 17:55 Amorphous Sediment 1+ /HPF (NEGATIVE) 05/30/20 17:55 Urine Bacteria Trace /HPF (NEGATIVE) 05/30/20 17:55 Urine Mucus Numerous /HPF (NEGATIVE) 05/30/20 17:55 Ur Culture Indicated? No/not indicated 05/30/20 17:55 Blood Type O POSITIVE 05/31/20 15:24 Plan (1) Pneumonia due to COVID-19 virus: Status: Acute (2) Hypoxia: Status: Acute (3) HTN (hypertension): Status: Acute (4) Diabetes: Status: Acute
[2020-06-05] MEDS: NS 1/2 1000 ML IV 1,000 ML IV SCH (18:06)
[2020-06-05] MEDS ORDERED: NS 1/2 1000 ML IV 1,000 ML IV ONE (18:08)
[2020-06-05] MEDS: SNACK - Diabetic Appropriate PO SCH (21:15)
[2020-06-05] MEDS: HumuLIN R SUBCUT PRN (21:15)
[2020-06-06] MEDS: NS 1/2 1000 ML IV 1,000 ML IV SCH ×2 (02:12→16:33)
[2020-06-06] MEDS: BENADRYL CAP 50 MG PO PRN ×2 (04:33→20:15)
--- NOTE | 2020-06-06 05:33 | RAD ---
HISTORYPNEUMONIASTUDYCHEST, 1 VIEWCOMPARISONNoneFINDINGSThe trachea is midline. The cardiac silhouette is unremarkable. Improved aeration of the perihilar region. Persistent patchy bilateral pulmonary infiltrates/opacities. No pleural effusion or pneumothorax.. The bony thorax is stable.IMPRESSIONSlight interval improvement in bilateral patchy pulmonary opacities/infiltrates.Electronically signed by: Goldie Waller (Jun 06, 2020 05:33:05)
[2020-06-06 05:43] LABS: ABG ALLEN TEST POS; ABG HCO3 23.8 mmol/L (22-26)
[2020-06-06] MEDS: BACTROBAN TOPICAL OINT TOP SCH ×3 (06:15→21:20)
[2020-06-06] MEDS: ZOSYN VIAL 3.375 GRAMS 3.375 G in NS 100 ML IV + SPIKE MINIBAG* 100 ML IV SCH ×3 (06:16→21:20)
[2020-06-06 06:25] LABS: ALANINE AMINOTRANSFERASE 47 Units/L (12-78); ALBUMIN 2.3 g/dL (3.4-5.0); ALKALINE PHOSPHATASE 55 Units/L (46-116); ASPARTATE AMINO TRANSFERASE 18 Units/L (15-37); BLOOD UREA NITROGEN 13 mg/dL (7-18); CALCIUM 8.2 mg/dL (8.5-10.1); CHLORIDE 105 mmol/L (98-107); COR CA(FOR HYPOALB) 9.6 mg/dL (8.5-10.1); COR NA(FOR HYPERGLY) 138 mmol/L (136-145); CREATININE 0.81 mg/dL (0.70-1.30); SODIUM 137 mmol/L (136-145); eGFR NON BLACK RACES > 60 (>60)
[2020-06-06 06:32] LABS: BASOPHILS % (AUTO) 0.4 % (0.2-1.0); EOSINOPHILS # (AUTO) 0.3 x10^3/uL (0.0-0.2); EOSINOPHILS % (AUTO) 3.1 % (0.9-2.9); HEMATOCRIT 40.1 % (42.0-54.0); HEMOGLOBIN 13.7 g/dL (13.5-18.0); LYMPHOCYTES # (AUTO) 1.3 X10^3/uL (1.3-2.9); LYMPHOCYTES % (AUTO) 13.8 % (21.0-51.0); MEAN CORPUSCULAR HEMOGLOBIN 29.8 pg (27.0-34.0); MEAN CORPUSCULAR HGB CONC 34.1 g/dL (33.0-35.0); MEAN CORPUSCULAR VOLUME 87.4 fL (80.0-100.0); MEAN PLATELET VOLUME 7.9 fL (7.4-11.0); MONOCYTES # (AUTO) 0.7 x10^3/uL (0.3-0.8); MONOCYTES % (AUTO) 6.9 % (0.0-13.0); NEUTROPHILS # (AUTO) 7.1 x10^3/uL (2.2-4.8); NEUTROPHILS % (AUTO) 75.8 % (42.0-75.0); PLATELET COUNT 334 X10^3/uL (150.0-450.0); RED BLOOD COUNT 4.59 X10^6/uL (4.7-6.0); RED CELL DISTRIBUTION WIDTH 12.7 % (11.6-16.5); WHITE BLOOD COUNT 9.4 X10^3/uL (3.6-10.0)
[2020-06-06] MEDS: LOVENOX INJ 40 MG SYR SC SCH (09:11)
[2020-06-06] MEDS: ZITHROMAX INJ 500 MG VIAL 500 MG in NS 250 ML IV 250 ML IV SCH (09:12)
[2020-06-06] MEDS: VSL#3 PO SCH (09:12)
[2020-06-06] MEDS: ROBITUSSIN DM PO SCH ×4 (09:12→20:15)
[2020-06-06] MEDS: DUONEB 0.5 MG/3 MG (3 mL) NEB SCH ×2 (14:20→18:30)
[2020-06-06] MEDS ORDERED: NS 1/2 1000 ML IV 1,000 ML IV ONE (16:29)
[2020-06-06] MEDS: SNACK - Diabetic Appropriate PO SCH (20:15)
[2020-06-06] MEDS: HumuLIN R SUBCUT PRN (20:15)
[2020-06-07] MEDS: NS 1/2 1000 ML IV 1,000 ML IV SCH (00:10)
[2020-06-07] MEDS: DUONEB 0.5 MG/3 MG (3 mL) NEB SCH ×3 (00:55→13:50)
[2020-06-07 05:31] LABS: BASOPHILS % (AUTO) 0.4 % (0.2-1.0); EOSINOPHILS # (AUTO) 0.4 x10^3/uL (0.0-0.2); EOSINOPHILS % (AUTO) 3.3 % (0.9-2.9); HEMATOCRIT 43.7 % (42.0-54.0); HEMOGLOBIN 14.7 g/dL (13.5-18.0); LYMPHOCYTES # (AUTO) 1.3 X10^3/uL (1.3-2.9); LYMPHOCYTES % (AUTO) 12.2 % (21.0-51.0); MEAN CORPUSCULAR HEMOGLOBIN 29.8 pg (27.0-34.0); MEAN CORPUSCULAR HGB CONC 33.7 g/dL (33.0-35.0); MEAN CORPUSCULAR VOLUME 88.5 fL (80.0-100.0); MEAN PLATELET VOLUME 7.8 fL (7.4-11.0); NEUTROPHILS % (AUTO) 75.1 % (42.0-75.0); PLATELET COUNT 370 X10^3/uL (150.0-450.0); RED BLOOD COUNT 4.94 X10^6/uL (4.7-6.0); WHITE BLOOD COUNT 10.6 X10^3/uL (3.6-10.0)
[2020-06-07 05:37] LABS: ALANINE AMINOTRANSFERASE 58 Units/L (12-78); ALBUMIN 2.7 g/dL (3.4-5.0); ALKALINE PHOSPHATASE 72 Units/L (46-116); ASPARTATE AMINO TRANSFERASE 25 Units/L (15-37); BLOOD UREA NITROGEN 13 mg/dL (7-18); CALCIUM 8.4 mg/dL (8.5-10.1); CARBON DIOXIDE 26.7 mmol/L (21-32); CHLORIDE 104 mmol/L (98-107); COR CA(FOR HYPOALB) 9.4 mg/dL (8.5-10.1); COR NA(FOR HYPERGLY) 138 mmol/L (136-145); SODIUM 137 mmol/L (136-145); TOTAL PROTEIN 6.8 g/dL (6.4-8.2); eGFR NON BLACK RACES > 60 (>60)
[2020-06-07 05:52] LABS: PLATELET MORPHOLOGY COMMENT NORMAL (NORMAL)
[2020-06-07] MEDS: HumuLIN R SUBCUT PRN (05:54)
[2020-06-07] MEDS: BACTROBAN TOPICAL OINT TOP SCH (05:54)
[2020-06-07] MEDS: ZOSYN VIAL 3.375 GRAMS 3.375 G in NS 100 ML IV + SPIKE MINIBAG* 100 ML IV SCH (05:55)
[2020-06-07 06:29] LABS: ABG BASE EXCESS -1.1 mmol/L (-2.0-2.0); ABG HCO3 22.4 mmol/L (22-26)
[2020-06-07 06:30] LABS: ABG ALLEN TEST POS
[2020-06-07] MEDS: LOVENOX INJ 40 MG SYR SC SCH ×2 (08:01→08:26)
[2020-06-07] MEDS: ROBITUSSIN DM PO SCH ×2 (08:02→12:03)
[2020-06-07] MEDS: VSL#3 PO SCH (08:02)
--- NOTE | 2020-06-07 08:15 | RAD ---
HISTORYPneumoniaSTUDYCHEST, 1 [id number]/06/2020FINDINGSThe trachea is midline. The cardiac silhouette is within normal limits. Patchy bilateral airspace opacities throughout both lungs are grossly unchanged. There is no significant pleural effusion or evidence of pneumothorax. The bony thorax is grossly in unremarkable.IMPRESSIONUnchanged exam compared with the previous day.Electronically signed by: FLAKO LAIRD (Jun 07, 2020 08:15:07)
[2020-06-07] MEDS ORDERED: LEVAQUIN PREMIX IV 500 MG 500 MG/100 ML BAG IV ONE (10:44)
[2020-06-07] MEDS ORDERED: LEVAQUIN PREMIX IV 500 MG 500 MG/100 ML BAG IV SCH (11:00)
[2020-06-07 14:07] VITALS: BP 121/70
--- NOTE | 2020-06-24 14:11 | PCM.PROG ---
Progress Note Progress Note for Day of Date of Exam: 06/06/20 Subjective Subjective: Patient seen at bedside, no overnight events. Patient states he is feeling better today. His breathing has improved. He is currently on 3 L NC. He reports a slight cough. Denies fever or chills. Denies N/V/D. He is currently admitted for COVID-19 infection. He completed course of Remdesivir and steroids. He did receive plasma on 06/02/20. He is currently on Azithromax and Zosyn. Labs: WBC: 9.4 AB.45/34/69/23 CTPE: neg for PE, bibasilar interstitial opacities consistent with COVID-19 infection. CXR: stable with no new findings Plan: continue current treatment, wean O2 as tolerated. Monitor AM labs. Will have RT evaluate him and see how much O2 he would need with ambulation. Past Medical Family Social History Past Med/Fam/Surg Hx: No changes since H&P Allergies: Allergies No Known Drug Allergies Allergy (Verified 05/30/20 11:30) Review of Systems ROS: No change since H&P Vital Signs and I&O's Vital Signs: Temperature 98.1 F Pulse Rate [Right Brachial] 110 Pulse Rate 94 Respiratory Rate 20 Blood Pressure [Left Arm] 118/64 Blood Pressure [Right Arm] 121/70 Blood Pressure 127/82 O2 Sat by Pulse Oximetry 91 Physical Exam Oriented: Normal Eyes: Normal Ear: Normal Nose: Normal Respiratory: Generalized and Diminished Cardiovascular: Normal; negative Edema : Normal Auscultation: Bowel Sounds: Normal Tenderness: Normal Skin: Decreased [place]urg[place] Musculoskeletal: Normal Psychiatric: Normal Affect: Normal Speech Pattern: Clear and Appropriate Laboratory and Diagnostics Result Diagrams: 06/07/20 04:55 06/07/20 04:55 Labs: 05/30/20 12:08 Blood Blood Culture - Final 05/30/20 12:06 Blood Blood Culture - Final 05/30/20 21:40 Sputum - Expectorated Sputum Sputum Culture - Final 05/30/20 21:40 Sputum - Expectorated Sputum - Final Laboratory WBC 10.6 X10^3/uL (3.6-10.0) H 06/07/20 04:55 RBC 4.94 X10^6/uL (4.7-6.0) 06/07/20 04:55 Hgb 14.7 g/dL (13.5-18.0) 06/07/20 04:55 Hct 43.7 % (42.0-54.0) 06/07/20 04:55 MCV 88.5 fL (80.0-100.0) 06/07/20 04:55 MCH 29.8 pg (27.0-34.0) 06/07/20 04:55 MCHC 33.7 g/dL (33.0-35.0) 06/07/20 04:55 RDW 13.0 % (11.6-16.5) 06/07/20 04:55 Plt Count 370 X10^3/uL (150.0-450.0) 06/07/20 04:55 Plt Count Comment Adequate (ADEQUATE) 06/07/20 04:55 MPV 7.8 fL (7.4-11.0) 06/07/20 04:55 Neut % (Auto) 75.1 % (42.0-75.0) H 06/07/20 04:55 Lymph % (Auto) 12.2 % (21.0-51.0) L 06/07/20 04:55 [place] % (Auto) 9.0 % (0.0-13.0) 06/07/20 04:55 Eos % (Auto) 3.3 % (0.9-2.9) H 06/07/20 04:55 Baso % (Auto) 0.4 % (0.2-1.0) 06/07/20 04:55 Neut # (Auto) 8.0 x10^3/uL (2.2-4.8) H 06/07/20 04:55 Lymph # (Auto) 1.3 X10^3/uL (1.3-2.9) 06/07/20 04:55 [place] # (Auto) 1.0 x10^3/uL (0.3-0.8) H 06/07/20 04:55 Eos # (Auto) 0.4 x10^3/uL (0.0-0.2) H 06/07/20 04:55 Baso # (Auto) 0.0 X10^3/uL (0.0-0.1) 06/07/20 04:55 Absolute Nucleated RBC 0.0 /100WBC 06/07/20 04:55 Total Counted 100 06/07/20 04:55 Neutrophils % (Manual) 76 % (39-76) 06/07/20 04:55 Band Neutrophils % 1 % (0-10) 06/05/20 05:10 Lymphocytes % (Manual) 22 % (13-43) 06/07/20 04:55 Monocytes % (Manual) 2 % (4-9) L 06/07/20 04:55 Eosinophils % (Manual) 2 % (0-6) 06/05/20 05:10 Basophils % (Manual) Cancelled 06/04/20 05:00 Metamyelocytes % Cancelled 06/04/20 05:00 Myelocytes % Cancelled 06/04/20 05:00 Promyelocytes % Cancelled 06/04/20 05:00 Nucleated RBCs Cancelled 06/04/20 05:00 Atypical Lymphocytes Cancelled 06/04/20 05:00 Blast Cells Cancelled 06/04/20 05:00 Smudge Cells Cancelled 06/04/20 05:00 Toxic Granulation Cancelled 06/04/20 05:00 Dohle Bodies Cancelled 06/04/20 05:00 Ela Rods Cancelled 06/04/20 05:00 Plt Clumps, EDTA Cancelled 06/04/20 05:00 Giant Platelets Cancelled 06/04/20 05:00 Plt Morphology Comment Normal (NORMAL) 06/07/20 04:55 RBC Morphology Normal (NORMAL) 06/07/20 04:55 Dimorphic RBCs Cancelled 06/04/20 05:00 Polychromasia Cancelled 06/04/20 05:00 Hypochromasia Cancelled 06/04/20 05:00 Poikilocytosis Cancelled 06/04/20 05:00 Basophilic Stippling Cancelled 06/04/20 05:00 Anisocytosis Cancelled 06/04/20 05:00 Microcytosis Cancelled 06/04/20 05:00 Macrocytosis Cancelled 06/04/20 05:00 Spherocytes Cancelled 06/04/20 05:00 Pappenheimer Bodies Cancelled 06/04/20 05:00 Sickle Cells Cancelled 06/04/20 05:00 Target Cells Cancelled 06/04/20 05:00 Tear Drop Cells Cancelled 06/04/20 05:00 Ovalocytes Cancelled 06/04/20 05:00 Stomatocytes Cancelled 06/04/20 05:00 Helmet Cells Cancelled 06/04/20 05:00 [place] Bodies Cancelled 06/04/20 05:00 [place] Rings Cancelled 06/04/20 05:00 [place] Cells Cancelled 06/04/20 05:00 Crenated Cell Cancelled 06/04/20 05:00 Acanthocytes (Spur) Cancelled 06/04/20 05:00 Rouleaux Cancelled 06/04/20 05:00 Schistocytes Cancelled 06/04/20 05:00 Sample Site [place] 06/07/20 06:22 ABG pH 7.440 (7.35-7.45) 06/07/20 06:22 ABG pCO2 33.0 mmHg (35.0-45.0) L 06/07/20 06:22 ABG pO2 66.0 mmHg (80.0-100.0) L 06/07/20 06:22 ABG HCO3 22.4 mmol/L (22-26) 06/07/20 06:22 ABG O2 Saturation 93.0 % (90-100) 06/07/20 06:22 ABG Base Excess -1.1 mmol/L (-2.0-2.0) 06/07/20 06:22 Glenn Test Pos 06/07/20 06:22 A-a Gradient 121.0 mmHg 06/07/20 06:22 FiO2 32.0 06/07/20 06:22 Blood Gas Comments Sonia abg well-mtf 06/07/20 06:22 Sodium 137 mmol/L (136-145) 06/07/20 04:55 Corrected Sodium 138 mmol/L (136-145) 06/07/20 04:55 Potassium 4.4 mmol/L (3.5-5.1) 06/07/20 04:55 Chloride 104 mmol/L (98-107) 06/07/20 04:55 Carbon Dioxide 26.7 mmol/L (21-32) 06/07/20 04:55 BUN 13 mg/dL (7-18) 06/07/20 04:55 Creatinine 1.00 mg/dL (0.70-1.30) 06/07/20 04:55 Est GFR (MDRD) Af Amer > 60 (>60) 06/07/20 04:55 Est GFR (MDRD) Non-Af > 60 (>60) 06/07/20 04:55 Glucose 144 mg/dL (65-99) H 06/07/20 04:55 POC Glucose (mg/dL) 145 mg/dL (65-99) H 06/07/20 10:51 Hemoglobin A1c 7.0 % 06/01/20 05:10 Lactic Acid 1.3 mmol/L (0.4-2.0) 05/30/20 12:06 Calcium 8.4 mg/dL (8.5-10.1) L 06/07/20 04:55 Corrected Calcium 9.4 mg/dL (8.5-10.1) 06/07/20 04:55 Ferritin 1499 ng/mL (26-388) H 05/30/20 12:06 Total Bilirubin 0.30 mg/dL (0.2-1.0) 06/07/20 04:55 AST 25 Units/L (15-37) 06/07/20 04:55 ALT 58 Units/L (12-78) 06/07/20 04:55 Alkaline Phosphatase 72 Units/L (46-116) 06/07/20 04:55 Lactate Dehydrogenase 533 Units/L (85-227) H 05/30/20 12:06 C-Reactive Protein 173.60 mg/L (0-3.0) H 05/30/20 12:06 Total Protein 6.8 g/dL (6.4-8.2) 06/07/20 04:55 Albumin 2.7 g/dL (3.4-5.0) L 06/07/20 04:55 Globulin 4.1 g/dL (2.5-4.5) 06/07/20 04:55 Albumin/Globulin Ratio 0.7 Ratio (1.1-2.1) L 06/07/20 04:55 Specimen Type Clean catch urine 05/30/20 17:55 Urine Color Amanda (YELLOW) 05/30/20 17:55 Urine Appearance Clear (CLEAR) 05/30/20 17:55 Urine pH 5.0 (5.0 - 8.0) 05/30/20 17:55 Ur Specific [place] 1.025 (1.000-1.030) 08/30/20 17:55 Urine Protein 2+ (NEGATIVE) 05/30/20 17:55 Urine Glucose (UA) 2+ (NEGATIVE) 05/30/20 17:55 Urine Ketones Negative (NEGATIVE) 05/30/20 17:55 Urine Occult Blood Negative (NEGATIVE) 05/30/20 17:55 Urine Nitrite Negative (NEGATIVE) 05/30/20 17:55 Urine Bilirubin Negative (NEGATIVE) 05/30/20 17:55 Urine Urobilinogen Normal (NORMAL) 05/30/20 17:55 Ur Leukocyte Esterase Negative (NEGATIVE) 05/30/20 17:55 Urine RBC None seen /HPF (0-3) 05/30/20 17:55 Urine WBC None seen /HPF (0-5) 05/30/20 17:55 Ur Squamous Epith Cells Rare /HPF (NEGATIVE) 05/30/20 17:55 Amorphous Sediment 1+ /HPF (NEGATIVE) 05/30/20 17:55 Urine Bacteria Trace /HPF (NEGATIVE) 05/30/20 17:55 Urine Mucus Numerous /HPF (NEGATIVE) 05/30/20 17:55 Ur Culture Indicated? No/not indicated 05/30/20 17:55 Blood Type O POSITIVE 05/31/20 15:24 Plan (1) Pneumonia due to COVID-19 virus: Status: Acute Plan: AM LABS, REPEAT AM CXR AND ABG ON ROOM AIR, SUPPLEMENTAL O2 ISOLATION, CARDIAC MONITORING IV ZITHROMAX AND ZOSYN, PLASMA AND REMDESIVIR IV HYDRATION (2) Hypoxia: Status: Acute (3) HTN (hypertension): Status: Acute (4) Diabetes: Status: Acute
== END 2020-06-07 15:00 | disposition home health service (06) | DRG 177 ==
LOC: ER 11:29 → MED/SURG 15:27 → ICU 06-03 11:33
PROVIDERS: ADMIT Internal Medicine; ATTEND Internal Medicine
DX: R51 Headache; E11.65 Type 2 diabetes mellitus with hyperglycemia; L73.9 Follicular disorder, unspecified; I10 Essential (primary) hypertension; U07.1 COVID-19; R07.89 Other chest pain; R06.02 Shortness of breath; R19.7 Diarrhea, unspecified; R09.02 Hypoxemia; J12.89 Other viral pneumonia